=== PATIENT | female | born 1990 | race Caucasian/White ===

== ENCOUNTER 2019-04-04 17:13 | Emergency (ER) | payer MEDICAID, OTHER ==
[~2019-04-04] VITALS: Ht 160 cm; Wt 65.9 kg
[~2019-04-04 17:13] MED LIST: DIVA-54 PO; DIVA250T4 PO; ETHI1TAB16 PO; FLUT16H NASAL; GUAN1TAB22 PO
[2019-04-04] MEDS ORDERED: IBUP-2070 PO (19:51)
[2019-04-04] MEDS ORDERED: GEMF600T5 PO (19:51)
[2019-04-04] MEDS ORDERED: BACL10TA PO (19:51)
[2019-04-04] MEDS ORDERED: ARIP10TA8 PO (19:51)
[2019-04-04] MEDS ORDERED: HYDR50CA9 PO (19:51)
[2019-04-04] MEDS ORDERED: CLON0.1T2 PO (19:51)
[2019-04-04] MEDS ORDERED: OXCA300T29 PO (19:51)
[2019-04-04] MEDS ORDERED: OLAN5TAB2 PO (19:51)
[2019-04-04] MEDS ORDERED: DIVA-54 PO (19:53)
[2019-04-04 20:07] LABS: BASOPHILS % (AUTO) 0.6 % (0.0-2.0); EOSINOPHILS % (AUTO) 0.2 % (1.0-6.0); HEMATOCRIT 38.2 % (36-46); HEMOGLOBIN 13.1 g/dL (12.0-16.0); LYMPHOCYTES % (AUTO) 45.3 % (22.0-44.0); MEAN CORPUSCULAR HEMOGLOBIN 32.5 pg (26.0-34.0); MEAN CORPUSCULAR HGB CONC 34.4 G/dL (31.0-37.0); MEAN CORPUSCULAR VOLUME 94 fL (80-100); MONOCYTES # (AUTO) 0.5 K/uL (0.1-1.0); MONOCYTES % (AUTO) 8.1 % (2.0-9.0); NEUTROPHILS % (AUTO) 45.8 % (40.0-70.0); PLATELET COUNT (AUTO) 175 K/uL (150-450); RED BLOOD CELL COUNT(AUTO) 4.05 MIL/uL (4.00-5.20); RED CELL DISTRIBUTION WIDTH 13.1 % (11.5-14.5)
[2019-04-04 20:18] LABS: ANION GAP 11 mmol/L (8-16); CALCIUM, TOTAL 9.2 mg/dL (8.8-10.5); CARBON DIOXIDE 28 mmol/L (22-29); CHLORIDE 101 mmol/L (98-107); CREATININE 0.82 mg/dL (0.60-1.30); GLOMERULAR FILTR. RATE CALC > 60 mL/min (>60); GLUCOSE,RANDOM 121 mg/dL (70-110); POTASSIUM 3.8 mmol/L (3.5-5.1); SODIUM SERUM 140 mmol/L (136-145); UREA NITROGEN, BLOOD 14 mg/dL (7-18)
[2019-04-04 20:24] LABS: ALANINE AMINOTRANSFERASE 14 U/L (12-78); ALBUMIN 3.3 g/dL (3.4-5.0); ALKALINE PHOSPHATASE 38 U/L (46-116); ASPARTATE AMINOTRANSFERASE 16 U/L (15-37); BILIRUBIN,TOTAL 0.3 mg/dL (0.1-1.0); TOTAL PROTEIN, SERUM 7.3 g/dL (6.4-8.2); VALPROIC ACID 35 mcg/mL (50-100)
[2019-04-04 21:13] LABS: AMPHET/METH SCREEN,URINE NEGATIVE (NEGATIVE); BARBITURATE SCREEN, URINE NEGATIVE (NEGATIVE); BENZODIAZEPINES SCREEN,URINE NEGATIVE (NEGATIVE); CANNABINOID SCREEN,URINE NEGATIVE (NEGATIVE); COCAINE SCREEN,URINE NEGATIVE (NEGATIVE); METHADONE SCREEN, URINE NEGATIVE (NEGATIVE); OPIATE SCREEN,URINE NEGATIVE (NEGATIVE); PHENCYCLIDINE SCREEN,URINE NEGATIVE (NEGATIVE)
[2019-04-04 23:05] VITALS: BP 122/67
== END 2019-04-05 00:30 | disposition home or self-care (01) ==
LOC: EMS 17:19
DX: F31.9 Bipolar disorder, unspecified (principal); Z88.8 Allergy status to other drugs, medicaments and biological substances; Z88.1 Allergy status to other antibiotic agents; Z91.011 Allergy to milk products
CPT/HCPCS: 36415; 80053; 80164; 80307; 85025; 99285; G0480

== ENCOUNTER 2023-02-17 17:19 | Inpatient (IN) | payer MEDICAID, OTHER ==
[~2023-02-17] VITALS: Ht 160 cm; Wt 67.1 kg
[~2023-02-17 17:19] MED LIST changes: +ARIP10TA38 PO; +BACL10TA PO; +CLON0.1T2 PO; -DIVA250T4 PO; -ETHI1TAB16 PO; -FLUT16H NASAL; +GEMF-77 PO; -GUAN1TAB22 PO; +HYDR50CA7 PO; +IBUP-1492 PO; +OLAN5TAB52 PO; +OXCA300T70 PO
[2023-02-17 18:52] LABS: COVID AG,FIA SOURCE NASAL SWAB
[2023-02-17 18:54] LABS: BASOPHILS % (AUTO) 0.6 % (0.0-2.0); EOSINOPHILS % (AUTO) 0 % (1.0-6.0); LYMPHOCYTES # (AUTO) 1.3 K/uL (1.0-4.8); LYMPHOCYTES % (AUTO) 24.5 % (22.0-44.0); MEAN CORPUSCULAR HEMOGLOBIN 31.6 pg (26.0-34.0); MEAN CORPUSCULAR HGB CONC 34.3 G/dL (31.0-37.0); MEAN CORPUSCULAR VOLUME 92 fL (80-100); MONOCYTES # (AUTO) 0.5 K/uL (0.1-1.0); MONOCYTES % (AUTO) 9.7 % (2.0-9.0); NEUTROPHILS # (AUTO) 3.5 K/uL (1.8-7.7); NEUTROPHILS % (AUTO) 65.2 % (40.0-70.0); PLATELET COUNT (AUTO) 200 K/uL (150-450); RED BLOOD CELL COUNT(AUTO) 3.47 MIL/uL (4.00-5.20); RED CELL DISTRIBUTION WIDTH 14.1 % (11.5-14.5); WHITE BLOOD COUNT (AUTO) 5.4 K/uL (4.5-11.0)
[2023-02-17 18:56] LABS: AMPHET/METH SCREEN,URINE NEGATIVE (NEGATIVE); BARBITURATE SCREEN, URINE NEGATIVE (NEGATIVE); BENZODIAZEPINES SCREEN,URINE NEGATIVE (NEGATIVE); CANNABINOID SCREEN,URINE NEGATIVE (NEGATIVE); COCAINE SCREEN,URINE NEGATIVE (NEGATIVE); METHADONE SCREEN, URINE NEGATIVE (NEGATIVE); OPIATE SCREEN,URINE NEGATIVE (NEGATIVE); PHENCYCLIDINE SCREEN,URINE NEGATIVE (NEGATIVE)
[2023-02-17 18:58] LABS: ALCOHOL, URINE DRUG SCREEN NEGATIVE (NEGATIVE)
[2023-02-17] MEDS ORDERED: POLYETHYLENE GLYCOL 3350 17 GM PACKET PO ONE (19:00)
[2023-02-17] MEDS ORDERED: LORazepam 2 MG TABLET PO ONE (19:00)
[2023-02-17 19:04] LABS: CALCIUM, TOTAL 9.1 mg/dL (8.8-10.5); CARBON DIOXIDE 23 mmol/L (22-29); CHLORIDE 99 mmol/L (98-107); CREATININE 0.92 mg/dL (0.60-1.30); GLOMERULAR FILTR. RATE CALC > 60 mL/min (>60); GLUCOSE,RANDOM 235 mg/dL (70-110); POTASSIUM 4.1 mmol/L (3.5-5.1); UREA NITROGEN, BLOOD 14 mg/dL (7-18)
[2023-02-17 19:09] LABS: ALANINE AMINOTRANSFERASE 18 U/L (12-78); ALBUMIN 3.5 g/dL (3.4-5.0); ALKALINE PHOSPHATASE 56 U/L (46-116); ASPARTATE AMINOTRANSFERASE 14 U/L (15-37); BILIRUBIN,TOTAL 0.4 mg/dL (0.1-1.0); TOTAL PROTEIN, SERUM 6.8 g/dL (6.4-8.2)
[2023-02-17 19:12] LABS: SARS-COV2 (COVID) ANTIGEN,FIA Negative (Negative)
[2023-02-17 19:44] LABS: ALCOHOL, BLOOD (SERUM) < 3 mg/dL (0-10)
[2023-02-17 19:52] LABS: ANION GAP 15 mmol/L (8-16); SODIUM SERUM 137 mmol/L (136-145)
[2023-02-17] MEDS ORDERED: DIVALPROEX SODIUM 500 MG DR TABLET PO SCH (21:00)
[2023-02-17] MEDS ORDERED: ARIPiprazole 10 MG TABLET PO SCH (21:00)
[2023-02-17] MEDS ORDERED: HALOPERIDOL 5 MG TABLET PO PRN (22:15)
[2023-02-17] MEDS ORDERED: LORazepam 2 MG TABLET PO PRN (22:15)
[2023-02-17] MEDS: BACLOFEN 10 MG TABLET PO SCH (22:19)
[2023-02-17] MEDS: CloNIDine HCL 0.1 MG TABLET PO SCH (22:19)
[2023-02-17] MEDS: OXcarbazepine 300 MG TABLET PO SCH (22:19)
[2023-02-18] MEDS ORDERED: ACETAMINOPHEN 500 MG TABLET PO ONE (01:00)
[2023-02-18] MEDS: CloNIDine HCL 0.1 MG TABLET PO SCH ×3 (08:26→18:00)
[2023-02-18] MEDS: BACLOFEN 10 MG TABLET PO SCH ×3 (08:27→17:00)
[2023-02-18] MEDS: OXcarbazepine 300 MG TABLET PO SCH ×2 (08:27→17:57)
[2023-02-18] MEDS ORDERED: DIVALPROEX SODIUM 500 MG DR TABLET PO SCH (09:00)
[2023-02-18 12:26] VITALS: BP 140/89; PULSE 89; RESP 18; TEMP 98; O2SAT 99
[2023-02-18] MEDS ORDERED: INFLUENZA VIRUS VACCINE QVS 2023-24 (6MO+)/PF 60 MCG/0.5 ML SYRINGE IM. ONE (13:30)
[2023-02-18 18:00] VITALS: BP 128/80; PULSE 82; RESP 18
[2023-02-18] MEDS: DIVALPROEX SODIUM 500 MG DR TABLET PO SCH (20:16)
[2023-02-18 20:21] VITALS: BP 128/83; PULSE 78; RESP 18; TEMP 97.6; O2SAT 100
[2023-02-18] MEDS ORDERED: LOPERAMIDE HCL 2 MG CAPSULE PO PRN (20:30)
[2023-02-18] MEDS ORDERED: DOCUSATE SODIUM 100 MG CAPSULE PO PRN (20:30)
[2023-02-18] MEDS ORDERED: OMEPRAZOLE 20 MG CAPSULE PO PRN (20:30)
[2023-02-18] MEDS ORDERED: ALBUTEROL SULFATE HFA 90 MCG/PUFF 8 GM INHALER IH PRN (20:30)
[2023-02-18] MEDS ORDERED: BACITRACIN 28 GM OINTMENT TP PRN (20:30)
[2023-02-18] MEDS ORDERED: MAG HYDROX/ALUMINUM HYD/SIMETH ES 30 ML SUSPENSION UDCUP PO PRN (20:30)
[2023-02-18] MEDS ORDERED: CloNIDine HCL 0.1 MG TABLET PO PRN (20:30)
[2023-02-18] MEDS ORDERED: MAGNESIUM HYDROXIDE SUSPENSION 30 ML UDCUP PO PRN (20:30)
[2023-02-18] MEDS ORDERED: ACETAMINOPHEN 325 MG TABLET PO PRN (20:30)
[2023-02-18] MEDS ORDERED: BENZOCAINE/MENTHOL LOZENGE PO PRN (20:30)
[2023-02-18] MEDS ORDERED: PETROLATUM,WHITE 28 GM JELLY TP PRN (20:30)
[2023-02-18] MEDS ORDERED: IBUPROFEN 600 MG TABLET PO PRN (20:30)
[2023-02-18] MEDS ORDERED: ONDANSETRON HCL 4 MG TABLET PO PRN (20:30)
[2023-02-18] MEDS: ZOLPIDEM TARTRATE 10 MG TABLET PO PRN (21:59)
[2023-02-19] MEDS: ARIPiprazole 15 MG TABLET PO SCH (08:10)
[2023-02-19] MEDS: LITHIUM CARBONATE 300 MG CAPSULE PO SCH ×2 (08:10→16:21)
[2023-02-19] MEDS: OXcarbazepine 300 MG TABLET PO SCH ×2 (08:12→16:21)
[2023-02-19 08:15] VITALS: BP 117/77; PULSE 87; RESP 17; TEMP 97.3; O2SAT 96
[2023-02-19] MEDS: DIVALPROEX SODIUM 500 MG DR TABLET PO SCH ×2 (11:49→20:12)
[2023-02-19] MEDS: BACITRACIN 28 GM OINTMENT TP SCH ×2 (11:51→17:39)
[2023-02-19] MEDS: ZOLPIDEM TARTRATE 10 MG TABLET PO PRN (20:12)
[2023-02-20 00:23] VITALS: RESP 18; TEMP 97.9
[2023-02-20 06:07] LABS: HEPATITIS C AB (EIA) Non Reactive (Non Reactive)
[2023-02-20 08:23] VITALS: BP 123/81; PULSE 79; RESP 16; TEMP 97.8; O2SAT 98
[2023-02-20] MEDS: ARIPiprazole 15 MG TABLET PO SCH (08:32)
[2023-02-20] MEDS: DIVALPROEX SODIUM 500 MG DR TABLET PO SCH ×2 (08:32→20:00)
[2023-02-20] MEDS: OXcarbazepine 300 MG TABLET PO SCH ×2 (08:32→16:19)
[2023-02-20] MEDS: LITHIUM CARBONATE 300 MG CAPSULE PO SCH ×2 (08:32→16:19)
[2023-02-20] MEDS: BACITRACIN 28 GM OINTMENT TP SCH ×2 (08:33→16:19)
[2023-02-20] MEDS: ZOLPIDEM TARTRATE 10 MG TABLET PO PRN (20:00)
[2023-02-20 20:30] VITALS: BP 127/89; PULSE 77; RESP 18; TEMP 97.5; O2SAT 99
[2023-02-20] MEDS ORDERED: DIVA-112 PO ×2 (22:00)
[2023-02-20] MEDS ORDERED: ARIP15TA27 PO (22:00)
[2023-02-20] MEDS ORDERED: OXCA300T28 PO (22:01)
[2023-02-20] MEDS ORDERED: LITH300C3 PO (22:01)
[2023-02-21 08:05] VITALS: BP 128/86; PULSE 100; RESP 18; TEMP 98; O2SAT 98
[2023-02-21] MEDS: LITHIUM CARBONATE 300 MG CAPSULE PO SCH (08:24)
[2023-02-21] MEDS: OXcarbazepine 300 MG TABLET PO SCH (08:24)
[2023-02-21] MEDS: DIVALPROEX SODIUM 500 MG DR TABLET PO SCH (08:24)
[2023-02-21] MEDS: ARIPiprazole 15 MG TABLET PO SCH (08:24)
[2023-02-21] MEDS: BACITRACIN 28 GM OINTMENT TP SCH (08:25)
== END 2023-02-21 13:28 | disposition home or self-care (01) | DRG 750 ==
LOC: EMS 17:20 → B3A 02-18 09:06
PROVIDERS: ADMIT Psychiatry & Neurology Psychiatry; ATTEND Psychiatry & Neurology Psychiatry
DX: F25.9 Schizoaffective disorder, unspecified (principal); F70 Mild intellectual disabilities; E73.9 Lactose intolerance, unspecified; Z20.822 Contact with and (suspected) exposure to COVID-19; F31.9 Bipolar disorder, unspecified; J30.9 Allergic rhinitis, unspecified; K59.00 Constipation, unspecified; F90.9 Attention-deficit hyperactivity disorder, unspecified type; Z88.2 Allergy status to sulfonamides; Z79.899 Other long term (current) drug therapy
CPT/HCPCS: 80053; 80307; 85025; 86803; 87340; 90686; 99285; G0480

== ENCOUNTER 2023-07-02 10:39 | Inpatient (IN) | payer MEDICAID, OTHER ==
[~2023-07-02] VITALS: Ht 160 cm; Wt 66.2 kg
[~2023-07-02 10:39] MED LIST changes: -ARIP10TA38 PO; +ARIP15TA27 PO; -BACL10TA PO; -CLON0.1T2 PO; +DIVA-112 PO; -DIVA-54 PO; -GEMF-77 PO; -HYDR50CA7 PO; -IBUP-1492 PO; +LITH300C3 PO; -OLAN5TAB52 PO; +OXCA300T28 PO; -OXCA300T70 PO
[2023-07-02 12:05] LABS: COVID AG,FIA SOURCE NPH
[2023-07-02 12:05] LABS: BASOPHILS % (AUTO) 0.7 % (0.0-2.0); EOSINOPHILS % (AUTO) 0 % (1.0-6.0); HEMATOCRIT 34.7 % (36-46); LYMPHOCYTES # (AUTO) 1.6 K/uL (1.0-4.8); LYMPHOCYTES % (AUTO) 30.4 % (22.0-44.0); MEAN CORPUSCULAR HEMOGLOBIN 31.5 pg (26.0-34.0); MEAN CORPUSCULAR HGB CONC 34.6 G/dL (31.0-37.0); MEAN CORPUSCULAR VOLUME 91 fL (80-100); MONOCYTES # (AUTO) 0.5 K/uL (0.1-1.0); MONOCYTES % (AUTO) 9.5 % (2.0-9.0); NEUTROPHILS % (AUTO) 59.4 % (40.0-70.0); PLATELET COUNT (AUTO) 184 K/uL (150-450); RED BLOOD CELL COUNT(AUTO) 3.81 MIL/uL (4.00-5.20); WHITE BLOOD COUNT (AUTO) 5.1 K/uL (4.5-11.0)
[2023-07-02 12:14] LABS: ANION GAP 10 mmol/L (8-16); CALCIUM, TOTAL 9.5 mg/dL (8.8-10.5); CARBON DIOXIDE 25 mmol/L (22-29); CHLORIDE 101 mmol/L (98-107); GLOMERULAR FILTR. RATE CALC > 60 mL/min (>60); GLUCOSE,RANDOM 192 mg/dL (70-110); POTASSIUM 3.7 mmol/L (3.5-5.1); SODIUM SERUM 136 mmol/L (136-145); UREA NITROGEN, BLOOD 13 mg/dL (7-18)
[2023-07-02 12:21] LABS: ALANINE AMINOTRANSFERASE 18 U/L (12-78); ALBUMIN 3.8 g/dL (3.4-5.0); ALKALINE PHOSPHATASE 53 U/L (46-116); ASPARTATE AMINOTRANSFERASE 18 U/L (15-37); BILIRUBIN,TOTAL 0.5 mg/dL (0.1-1.0); TOTAL PROTEIN, SERUM 7.4 g/dL (6.4-8.2)
[2023-07-02 12:22] LABS: LITHIUM 0.39 mmol/L (0.60-1.20)
[2023-07-02 12:23] LABS: ALCOHOL, BLOOD (SERUM) < 3 mg/dL (0-10)
[2023-07-02 12:27] LABS: SARS-COV2 (COVID) ANTIGEN,FIA Negative (Negative)
[2023-07-02 12:37] LABS: HCG,QUANTITATIVE < 1 mIU/mL (0-6); VALPROIC ACID 39 mcg/mL (50-100)
[2023-07-02] MEDS: AMOX TR/POT CLAV 875 MG/125 MG TABLET PO ONE (14:45)
[2023-07-02] MEDS: PERTUSS(ACELL),DIPH,TET/PF 0.5 ML SYRINGE [ADULT] IM. ONE (14:47)
[2023-07-02] MEDS: ACETAMINOPHEN 500 MG TABLET PO ONE (18:23)
[2023-07-02] MEDS ORDERED: LORazepam 2 MG TABLET PO PRN (21:00)
[2023-07-02] MEDS ORDERED: HALOPERIDOL 5 MG TABLET PO PRN (21:00)
[2023-07-02] MEDS: ZOLPIDEM TARTRATE 10 MG TABLET PO PRN (21:00)
[2023-07-02] MEDS: MELATONIN 3 MG TABLET PO ONE (21:21)
[2023-07-03 00:48] VITALS: BP 138/81; PULSE 82; RESP 18; TEMP 97.5
[2023-07-03] MEDS ORDERED: MAG HYDROX/ALUMINUM HYD/SIMETH ES 30 ML SUSPENSION UDCUP PO PRN (06:45)
[2023-07-03] MEDS ORDERED: CloNIDine HCL 0.1 MG TABLET PO PRN (06:45)
[2023-07-03] MEDS ORDERED: ALBUTEROL SULFATE HFA 90 MCG/PUFF 8 GM INHALER IH PRN (06:45)
[2023-07-03] MEDS ORDERED: LOPERAMIDE HCL 2 MG CAPSULE PO PRN (06:45)
[2023-07-03] MEDS ORDERED: DOCUSATE SODIUM 100 MG CAPSULE PO PRN (06:45)
[2023-07-03] MEDS ORDERED: ACETAMINOPHEN 325 MG TABLET PO PRN (06:45)
[2023-07-03] MEDS ORDERED: NICOTINE 14 MG/24 HOUR PATCH TD PRN (06:45)
[2023-07-03] MEDS ORDERED: GuaiFENesin/D-METHORPHAN [SUGAR-FREE] 200-20MG/10 ML SYRUP UDCUP PO PRN (06:45)
[2023-07-03] MEDS ORDERED: ONDANSETRON HCL 4 MG TABLET PO PRN (06:45)
[2023-07-03] MEDS ORDERED: PETROLATUM,WHITE 28 GM JELLY TP PRN (06:45)
[2023-07-03] MEDS ORDERED: MAGNESIUM HYDROXIDE SUSPENSION 30 ML UDCUP PO PRN (06:45)
[2023-07-03 09:31] VITALS: BP 126/76; PULSE 90; RESP 18; TEMP 98.2
[2023-07-03] MEDS: DIVALPROEX SODIUM 500 MG DR TABLET PO SCH ×2 (16:41→20:55)
[2023-07-03] MEDS: ARIPiprazole 15 MG TABLET PO SCH (16:41)
[2023-07-03 21:05] VITALS: BP 118/65; PULSE 68; RESP 19; TEMP 97
[2023-07-04 09:06] LABS: THYROID STIMULATING HORMONE 3.01 uIU/mL (0.36-3.74)
[2023-07-04] MEDS: IBUPROFEN 400 MG TABLET PO PRN (09:36)
[2023-07-04 09:37] VITALS: BP 122/78; PULSE 82; RESP 18; TEMP 97.3
[2023-07-04 10:36] VITALS: BP 124/76; PULSE 78; RESP 18
[2023-07-04 21:37] VITALS: BP 158/90; PULSE 92; RESP 18; TEMP 97.5
[2023-07-05 09:34] VITALS: BP 119/80; PULSE 84; RESP 17; TEMP 97.3
[2023-07-05 21:23] VITALS: BP 124/76; PULSE 84; RESP 18; TEMP 98.1
[2023-07-06 07:41] LABS: CHOL/HDL RATIO 4.4 (3.9-5.7)
[2023-07-06 08:32] VITALS: BP 127/76; PULSE 74; RESP 18; TEMP 97.6
[2023-07-07] MEDS ORDERED: DIVA-112 PO ×2 (17:36)
[2023-07-07] MEDS ORDERED: ARIP15TA2 PO (17:36)
== END 2023-07-06 17:04 | disposition home or self-care (01) | DRG 750 ==
LOC: EMS 10:46 → 3EI 21:39
PROVIDERS: ADMIT Psychiatry & Neurology Psychiatry; ATTEND Psychiatry & Neurology Psychiatry
PROC: GZHZZZZ Group Psychotherapy (ICD-10-PCS; principal; 2023-07-03)
PROC: GZ51ZZZ Individual Psychotherapy, Behavioral (ICD-10-PCS; 2023-07-03)
DX: F25.1 Schizoaffective disorder, depressive type (principal); F79 Unspecified intellectual disabilities; F31.9 Bipolar disorder, unspecified; Z20.822 Contact with and (suspected) exposure to COVID-19; G47.00 Insomnia, unspecified; R73.9 Hyperglycemia, unspecified; Q86.0 Fetal alcohol syndrome (dysmorphic); Z79.899 Other long term (current) drug therapy; Z88.2 Allergy status to sulfonamides; Z88.3 Allergy status to other anti-infective agents; Z91.83 Wandering in diseases classified elsewhere
CPT/HCPCS: 80053; 80061; 80164; 80178; 83036; 84443; 84702; 85025; 90715; 99285; G0480

== ENCOUNTER 2023-07-10 09:44 | Inpatient (IN) | payer MEDICAID, OTHER ==
[~2023-07-10] VITALS: Ht 154.9 cm; Wt 66.2 kg
[~2023-07-10 09:44] MED LIST changes: +ARIP15TA2 PO; -LITH300C3 PO; -OXCA300T28 PO
[2023-07-10] MEDS ORDERED: ATOR10TA PO (10:14)
[2023-07-10] MEDS ORDERED: FLUO20CA36 PO (10:14)
[2023-07-10] MEDS ORDERED: CHLO100T42 PO (10:14)
[2023-07-10] MEDS ORDERED: ALLO-97 PO (10:14)
[2023-07-10] MEDS ORDERED: HYDR-4527 PO (10:14)
[2023-07-10] MEDS ORDERED: LEVO50 PO (10:14)
[2023-07-10] MEDS ORDERED: BUSP10TA23 PO (10:14)
[2023-07-10] MEDS ORDERED: ZOLPIDEM TARTRATE 10 MG TABLET PO PRN (12:30)
[2023-07-10 12:52] LABS: ALCOHOL, URINE DRUG SCREEN NEGATIVE (NEGATIVE); AMPHET/METH SCREEN,URINE NEGATIVE (NEGATIVE); BARBITURATE SCREEN, URINE NEGATIVE (NEGATIVE); BENZODIAZEPINES SCREEN,URINE NEGATIVE (NEGATIVE); CANNABINOID SCREEN,URINE NEGATIVE (NEGATIVE); COCAINE SCREEN,URINE NEGATIVE (NEGATIVE); METHADONE SCREEN, URINE NEGATIVE (NEGATIVE); OPIATE SCREEN,URINE NEGATIVE (NEGATIVE); PHENCYCLIDINE SCREEN,URINE NEGATIVE (NEGATIVE)
[2023-07-10 12:53] LABS: COVID AG,FIA SOURCE NASAL SWAB
[2023-07-10 12:58] LABS: BASOPHILS % (AUTO) 0.6 % (0.0-2.0); EOSINOPHILS % (AUTO) 0 % (1.0-6.0); HEMATOCRIT 34.8 % (36-46); HEMOGLOBIN 11.9 g/dL (12.0-16.0); LYMPHOCYTES # (AUTO) 1.2 K/uL (1.0-4.8); MEAN CORPUSCULAR HEMOGLOBIN 30.8 pg (26.0-34.0); MEAN CORPUSCULAR HGB CONC 34.1 G/dL (31.0-37.0); MEAN CORPUSCULAR VOLUME 90 fL (80-100); MONOCYTES # (AUTO) 0.3 K/uL (0.1-1.0); MONOCYTES % (AUTO) 7.2 % (2.0-9.0); NEUTROPHILS # (AUTO) 3.1 K/uL (1.8-7.7); NEUTROPHILS % (AUTO) 66.2 % (40.0-70.0); PLATELET COUNT (AUTO) 182 K/uL (150-450); RED BLOOD CELL COUNT(AUTO) 3.86 MIL/uL (4.00-5.20); RED CELL DISTRIBUTION WIDTH 15.2 % (11.5-14.5); WHITE BLOOD COUNT (AUTO) 4.6 K/uL (4.5-11.0)
[2023-07-10 13:09] LABS: ANION GAP 9 mmol/L (8-16); CALCIUM, TOTAL 9.6 mg/dL (8.8-10.5); CARBON DIOXIDE 26 mmol/L (22-29); CHLORIDE 102 mmol/L (98-107); CREATININE 0.86 mg/dL (0.60-1.30); GLOMERULAR FILTR. RATE CALC > 60 mL/min (>60); GLUCOSE,RANDOM 234 mg/dL (70-110); POTASSIUM 4.3 mmol/L (3.5-5.1); SODIUM SERUM 137 mmol/L (136-145); UREA NITROGEN, BLOOD 13 mg/dL (7-18)
[2023-07-10 13:13] LABS: ALCOHOL, BLOOD (SERUM) < 3 mg/dL (0-10)
[2023-07-10 13:15] LABS: ALANINE AMINOTRANSFERASE 22 U/L (12-78); ALBUMIN 3.4 g/dL (3.4-5.0); ALKALINE PHOSPHATASE 51 U/L (46-116); ASPARTATE AMINOTRANSFERASE 10 U/L (15-37); BILIRUBIN,TOTAL 0.5 mg/dL (0.1-1.0)
[2023-07-10 13:34] LABS: SARS-COV2 (COVID) ANTIGEN,FIA Negative (Negative)
[2023-07-10 17:45] VITALS: BP 120/83; PULSE 91; RESP 16; TEMP 98.8
[2023-07-10] MEDS: -PHARMACY VACCINE NOTE- MISC ONE (18:30)
[2023-07-10 20:41] VITALS: BP 129/83; PULSE 70; RESP 18; TEMP 97.5
[2023-07-10 23:41] VITALS: BP 129/83; PULSE 70; RESP 18; TEMP 97.5; O2SAT 99
[2023-07-11] MEDS: HALOPERIDOL 5 MG TABLET PO PRN (08:17)
[2023-07-11 08:21] VITALS: RESP 16
[2023-07-11] MEDS ORDERED: LOPERAMIDE HCL 2 MG CAPSULE PO PRN (08:45)
[2023-07-11] MEDS ORDERED: ONDANSETRON HCL 4 MG TABLET PO PRN (08:45)
[2023-07-11] MEDS ORDERED: DOCUSATE SODIUM 100 MG CAPSULE PO PRN (08:45)
[2023-07-11] MEDS ORDERED: MAGNESIUM HYDROXIDE SUSPENSION 30 ML UDCUP PO PRN (08:45)
[2023-07-11] MEDS ORDERED: GuaiFENesin/D-METHORPHAN [SUGAR-FREE] 200-20MG/10 ML SYRUP UDCUP PO PRN (08:45)
[2023-07-11] MEDS ORDERED: MAG HYDROX/ALUMINUM HYD/SIMETH ES 30 ML SUSPENSION UDCUP PO PRN (08:45)
[2023-07-11] MEDS ORDERED: CloNIDine HCL 0.1 MG TABLET PO PRN (08:45)
[2023-07-11] MEDS ORDERED: PETROLATUM,WHITE 28 GM JELLY TP PRN (08:45)
[2023-07-11] MEDS ORDERED: NICOTINE 14 MG/24 HOUR PATCH TD PRN (08:45)
[2023-07-11] MEDS ORDERED: IBUPROFEN 400 MG TABLET PO PRN (08:45)
[2023-07-11] MEDS ORDERED: ALBUTEROL SULFATE HFA 90 MCG/PUFF 8 GM INHALER IH PRN (08:45)
[2023-07-11] MEDS: DIVALPROEX SODIUM 500 MG DR TABLET PO SCH (14:17)
[2023-07-11] MEDS: MetFORMIN HCL 500 MG TABLET PO SCH (16:53)
[2023-07-11] MEDS: FluPHENAZine DECANOATE 25 MG/ML IM SCH (16:54)
[2023-07-11 20:05] VITALS: BP 104/60; PULSE 60; RESP 17; TEMP 98
[2023-07-12] MEDS: LEVOTHYROXINE SODIUM 50 MCG TABLET PO SCH (06:39)
[2023-07-12] MEDS: ATORVASTATIN CALCIUM 10 MG TABLET PO SCH (08:10)
[2023-07-12] MEDS: ALLOPURINOL 100 MG TABLET PO SCH (08:10)
[2023-07-12] MEDS: LORazepam 2 MG TABLET PO PRN (08:10)
[2023-07-12 09:02] LABS: THYROID STIMULATING HORMONE 2.21 uIU/mL (0.36-3.74)
[2023-07-12 09:31] LABS: CHOL/HDL RATIO 4.5 (3.9-5.7)
[2023-07-12 11:29] VITALS: BP 117/83; PULSE 74; RESP 17; TEMP 97.6; O2SAT 100
[2023-07-12 21:48] VITALS: BP 107/60; PULSE 62; RESP 18; TEMP 97.1; O2SAT 100
[2023-07-13 08:23] VITALS: BP 117/78; PULSE 86; RESP 16; TEMP 97.6; O2SAT 99
[2023-07-13 09:18] LABS: APPEARANCE,URINE CLEAR (CLEAR); BILIRUBIN,URINE NEGATIVE (NEGATIVE); COLOR,URINE LIGHT YELLOW (YELLOW); GLUCOSE, URINE (UA) NEGATIVE (NEGATIVE); KETONES,URINE NEGATIVE (NEGATIVE); LEUKOCYTE ESTERASE ,URINE NEGATIVE (NEGATIVE); NITRATE,URINE NEGATIVE (NEGATIVE); OCCULT BLOOD,URINE NEGATIVE (NEGATIVE); PH,URINE 6.5 (5.0-8.0); PROTEIN,URINE NEGATIVE (NEGATIVE); SPECIFIC GRAVITIY, URINE 1.019 (1.003-1.030); UROBILINOGEN,URINE <=1.0 mg/dL (<=1.0)
[2023-07-13] MEDS: ACETAMINOPHEN 325 MG TABLET PO PRN (16:38)
[2023-07-13 20:43] VITALS: BP 118/78; PULSE 69; RESP 16; TEMP 97.3; O2SAT 100
[2023-07-14 08:26] VITALS: BP 120/76; PULSE 86; RESP 16; TEMP 98; O2SAT 97
[2023-07-15 02:07] VITALS: RESP 18; TEMP 98.2
[2023-07-15 08:18] VITALS: BP 109/76; PULSE 80; RESP 16; TEMP 97.7; O2SAT 100
[2023-07-15 20:00] VITALS: BP 108/69; PULSE 86; RESP 18; TEMP 97.9; O2SAT 98
[2023-07-16 08:47] VITALS: BP 117/71; PULSE 79; RESP 17; TEMP 97.2; O2SAT 98
[2023-07-16 20:34] VITALS: BP 122/76; PULSE 66; RESP 16; TEMP 98; O2SAT 97
[2023-07-17 08:35] VITALS: BP 116/78; PULSE 80; RESP 16; TEMP 97.1; O2SAT 98
[2023-07-18 06:11] VITALS: RESP 18; TEMP 98.1
[2023-07-18 08:28] VITALS: BP 117/77; PULSE 63; RESP 18; TEMP 98; O2SAT 98
[2023-07-18 21:41] VITALS: BP 101/62; PULSE 65; RESP 18; TEMP 97.9; O2SAT 100
[2023-07-19 08:31] VITALS: BP 135/84; PULSE 90; RESP 18; TEMP 97.6; O2SAT 98
[2023-07-19] MEDS: FLUoxetine HCL 20 MG CAPSULE PO SCH (11:39)
[2023-07-19 21:48] VITALS: BP 125/73; PULSE 102; RESP 17; TEMP 98.6; O2SAT 96
[2023-07-20 08:31] VITALS: BP 128/74; PULSE 79; RESP 16; TEMP 98; O2SAT 96
[2023-07-20] MEDS ORDERED: DIVA-112 PO (10:48)
[2023-07-20] MEDS ORDERED: FLUO20CA36 PO (10:48)
[2023-07-20] MEDS ORDERED: FLUP25VI5 IM (10:48)
[2023-07-20] MEDS ORDERED: METF-1211 PO (14:31)
[2023-07-25] MEDS ORDERED: FluPHENAZine DECANOATE 25 MG/ML IM SCH (09:00)
== END 2023-07-20 17:27 | disposition home or self-care (01) | DRG 750 ==
LOC: EMS 09:58 → B3A 14:18
PROVIDERS: ADMIT Psychiatry & Neurology Psychiatry; ATTEND Psychiatry & Neurology Psychiatry
PROC: GZHZZZZ Group Psychotherapy (ICD-10-PCS; principal; 2023-07-11)
PROC: GZ51ZZZ Individual Psychotherapy, Behavioral (ICD-10-PCS; 2023-07-11)
DX: F25.1 Schizoaffective disorder, depressive type (principal); R45.851 Suicidal ideations; F79 Unspecified intellectual disabilities; E03.9 Hypothyroidism, unspecified; E11.65 Type 2 diabetes mellitus with hyperglycemia; D64.9 Anemia, unspecified; E78.5 Hyperlipidemia, unspecified; Z20.822 Contact with and (suspected) exposure to COVID-19; Q86.0 Fetal alcohol syndrome (dysmorphic); Z59.00 Homelessness unspecified; Z79.899 Other long term (current) drug therapy; Z88.2 Allergy status to sulfonamides; Z88.8 Allergy status to other drugs, medicaments and biological substances
CPT/HCPCS: 80053; 80061; 80164; 80307; 81003; 83036; 84443; 84703; 85025; 99285; G0480; J2680

== ENCOUNTER → 2024-02-25 | Emergency (ER) | payer MEDICAID, OTHER ==
[~2024-02-25] VITALS: Ht 160 cm; Wt 66.4 kg
[~2024-02-25] MED LIST changes: +ALLO-97 PO; -ARIP15TA2 PO; -ARIP15TA27 PO; +ATOR10TA PO; +FLUO-418 PO; +FLUP25VI5 IM; +LEVO50 PO; +METF-1211 PO
[2024-02-25 23:52] VITALS: TEMP 98.8
[2024-02-26 02:17] LABS: COVID AG,FIA SOURCE NASAL SWAB
[2024-02-26 02:29] LABS: SARS-COV2 (COVID) ANTIGEN,FIA Negative (Negative)
[2024-02-26 03:19] LABS: PH,URINE DRUG SCREEN 6.5 (5.0-8.0)
[2024-02-26 03:26] LABS: ALCOHOL, URINE DRUG SCREEN NEGATIVE (NEGATIVE); AMPHET/METH SCREEN,URINE NEGATIVE (NEGATIVE); BARBITURATE SCREEN, URINE NEGATIVE (NEGATIVE); BENZODIAZEPINES SCREEN,URINE NEGATIVE (NEGATIVE); CANNABINOID SCREEN,URINE NEGATIVE (NEGATIVE); COCAINE SCREEN,URINE NEGATIVE (NEGATIVE); METHADONE SCREEN, URINE NEGATIVE (NEGATIVE); OPIATE SCREEN,URINE NEGATIVE (NEGATIVE); PHENCYCLIDINE SCREEN,URINE NEGATIVE (NEGATIVE)
[2024-02-26 07:40] VITALS: BP 119/69; PULSE 75; RESP 18; O2SAT 99
== END | disposition still patient (30) ==
LOC: EMS 23:49
DX: F31.9 Bipolar disorder, unspecified (principal); Z88.2 Allergy status to sulfonamides; Z88.1 Allergy status to other antibiotic agents; Z20.822 Contact with and (suspected) exposure to COVID-19
CPT/HCPCS: 80307; 99285

== ENCOUNTER 2025-01-19 12:10 | Inpatient (IN) | payer MEDICAID, OTHER ==
[~2025-01-19] VITALS: Ht 160 cm; Wt 63.1 kg
[2025-01-19 12:38] LABS: PLATELET COUNT (AUTO) 153 K/uL (150-450); RED BLOOD CELL COUNT(AUTO) 3.35 MIL/uL (4.00-5.20); RED CELL DISTRIBUTION WIDTH 15.1 % (11.5-14.5); WHITE BLOOD COUNT (AUTO) 3.8 K/uL (4.5-11.0)
[2025-01-19 12:52] LABS: CALCIUM, TOTAL 9.2 mg/dL (8.8-10.5); CREATININE 0.98 mg/dL (0.60-1.30); GLOMERULAR FILTR. RATE CALC > 60 mL/min (>60); GLUCOSE,RANDOM 226 mg/dL (70-110); SODIUM SERUM 137 mmol/L (136-145); UREA NITROGEN, BLOOD 18 mg/dL (7-18)
[2025-01-19 14:16] LABS: VALPROIC ACID 94.0 mcg/mL (50-100)
[2025-01-19 15:07] LABS: COVID AG,FIA SOURCE NASAL SWAB
[2025-01-19 15:33] LABS: SARS-COV2 (COVID) ANTIGEN,FIA Negative (Negative)
[2025-01-19] MEDS: LEVOTHYROXINE SODIUM 100 MCG TABLET PO ONE (16:03)
[2025-01-19 16:27] VITALS: O2SAT 100
[2025-01-19 19:49] VITALS: BP 134/81; PULSE 81; RESP 18; TEMP 96.9; O2SAT 99
[2025-01-19 20:38] VITALS: BP 137/73; PULSE 84; RESP 18; TEMP 97.8; O2SAT 97
[2025-01-19 22:26] LABS: GLUCOMETER DEV NAME(LOC) BV2S.; GLUCOSE,POINT OF CARE 210 MG/DL (70-110)
[2025-01-20] MEDS ORDERED: PNEUMOCOCCAL VACCINE POLYVALENT 0.5 ML SYRINGE [PPSV23] IM. ONE (00:15)
[2025-01-20] MEDS ORDERED: ALBUTEROL SULFATE HFA 90 MCG/PUFF 8 GM INHALER IH PRN (06:00)
[2025-01-20] MEDS ORDERED: PETROLATUM,WHITE 28 GM JELLY TP PRN (06:00)
[2025-01-20] MEDS ORDERED: BACITRACIN 28 GM OINTMENT TP PRN (06:00)
[2025-01-20] MEDS ORDERED: MAG HYDROX/ALUMINUM HYD/SIMETH ES 30 ML SUSPENSION UDCUP PO PRN (06:00)
[2025-01-20] MEDS ORDERED: BENZOCAINE/MENTHOL [CEPACOL] LOZENGE PO PRN (06:00)
[2025-01-20] MEDS ORDERED: ONDANSETRON 4 MG TABLET PO PRN (06:00)
[2025-01-20] MEDS ORDERED: DOCUSATE SODIUM 100 MG CAPSULE PO PRN (06:00)
[2025-01-20] MEDS ORDERED: OMEPRAZOLE 20 MG CAPSULE PO PRN (06:00)
[2025-01-20] MEDS ORDERED: GLUCAGON,HUMAN RECOMBINANT 1 MG VIAL IM PRN (06:00)
[2025-01-20] MEDS ORDERED: MAGNESIUM HYDROXIDE SUSPENSION 30 ML UDCUP PO PRN (06:00)
[2025-01-20] MEDS: LEVOTHYROXINE SODIUM 100 MCG TABLET PO SCH (06:43)
[2025-01-20] MEDS: INSULIN LISPRO 100 UNITS/ML SQ PRN (06:47)
[2025-01-20 07:00] LABS: GLUCOMETER DEV NAME(LOC) BV2S.; GLUCOSE,POINT OF CARE 197 MG/DL (70-110)
[2025-01-20 08:25] VITALS: RESP 16
[2025-01-20] MEDS: ATORVASTATIN CALCIUM 10 MG TABLET PO SCH (09:03)
[2025-01-20] MEDS: LOPERAMIDE HCL 2 MG CAPSULE PO PRN (09:07)
[2025-01-20 12:11] LABS: GLUCOMETER DEV NAME(LOC) BV2S.; GLUCOSE,POINT OF CARE 209 MG/DL (70-110)
[2025-01-20 16:11] LABS: GLUCOMETER DEV NAME(LOC) BV2S.; GLUCOSE,POINT OF CARE 234 MG/DL (70-110)
[2025-01-20] MEDS: DIVALPROEX SODIUM 500 MG DR TABLET PO SCH (17:35)
[2025-01-20 20:19] VITALS: BP 120/74; PULSE 81; RESP 17; TEMP 97.1; O2SAT 100
[2025-01-20] MEDS: IBUPROFEN 600 MG TABLET PO PRN (20:20)
[2025-01-20 21:21] LABS: GLUCOMETER DEV NAME(LOC) BV2S.; GLUCOSE,POINT OF CARE 197 MG/DL (70-110)
[2025-01-20] MEDS: BENZTROPINE MESYLATE 2 MG TABLET PO SCH (21:47)
[2025-01-20] MEDS: ZOLPIDEM TARTRATE 10 MG TABLET PO PRN (22:30)
[2025-01-21 07:11] LABS: GLUCOMETER DEV NAME(LOC) BV2S.; GLUCOSE,POINT OF CARE 214 MG/DL (70-110)
[2025-01-21 08:32] VITALS: BP 132/76; PULSE 69; RESP 17; TEMP 97.7; O2SAT 100
[2025-01-21 11:26] LABS: GLUCOMETER DEV NAME(LOC) BV2S.; GLUCOSE,POINT OF CARE 263 MG/DL (70-110)
[2025-01-21 17:51] LABS: GLUCOMETER DEV NAME(LOC) BV2S.; GLUCOSE,POINT OF CARE 223 MG/DL (70-110)
[2025-01-21 19:01] VITALS: RESP 18; O2SAT 99
[2025-01-21 20:15] VITALS: BP 138/83; PULSE 67; RESP 17; TEMP 96.4; O2SAT 100
[2025-01-21 21:45] LABS: GLUCOMETER DEV NAME(LOC) BV3S.2; GLUCOSE,POINT OF CARE 199 MG/DL (70-110)
[2025-01-21 22:54] VITALS: BP 129/75; PULSE 69; RESP 18; TEMP 97.2; O2SAT 99
[2025-01-21] MEDS: ACETAMINOPHEN 325 MG TABLET PO PRN (22:54)
[2025-01-21 23:54] VITALS: RESP 17
[2025-01-22 06:41] LABS: GLUCOMETER DEV NAME(LOC) BV3S.2; GLUCOSE,POINT OF CARE 221 MG/DL (70-110)
[2025-01-22 08:20] VITALS: BP 142/86; PULSE 76; RESP 18; TEMP 97.4; O2SAT 100
[2025-01-22 11:16] LABS: GLUCOMETER DEV NAME(LOC) BV3S.2; GLUCOSE,POINT OF CARE 171 MG/DL (70-110)
[2025-01-22 17:10] LABS: GLUCOMETER DEV NAME(LOC) BV3S.2; GLUCOSE,POINT OF CARE 205 MG/DL (70-110)
[2025-01-22 20:15] LABS: GLUCOMETER DEV NAME(LOC) BV3S.2; GLUCOSE,POINT OF CARE 184 MG/DL (70-110)
[2025-01-22 20:33] VITALS: BP_SYST 125; BP_SYST 139; BP_DIAS 75; BP_DIAS 78; PULSE 69; RESP 17; TEMP 97.1; O2SAT 100; O2SAT 99
[2025-01-22 20:37] VITALS: RESP 17
[2025-01-22 21:37] VITALS: RESP 16
[2025-01-23 11:46] LABS: GLUCOMETER DEV NAME(LOC) BV3S.2; GLUCOSE,POINT OF CARE 203 MG/DL (70-110)
[2025-01-23 17:48] VITALS: RESP 18; O2SAT 100
[2025-01-23 20:36] LABS: GLUCOMETER DEV NAME(LOC) BV3S.2; GLUCOSE,POINT OF CARE 264 MG/DL (70-110)
[2025-01-23 20:36] LABS: GLUCOMETER DEV NAME(LOC) BV3S.2; GLUCOSE,POINT OF CARE 239 MG/DL (70-110)
[2025-01-23 20:46] VITALS: BP 130/70; PULSE 64; RESP 18; TEMP 97.7; O2SAT 99
[2025-01-24] VITALS (7 sets, daily range): BP systolic 91–139; BP diastolic 60–91; PULSE 60–78; RESP 16–18; TEMP 97.3–97.9; O2SAT 100
[2025-01-24] MEDS ORDERED: BENZ2TAB84 PO (10:14)
[2025-01-24 11:15] LABS: GLUCOMETER DEV NAME(LOC) BV3S.2; GLUCOSE,POINT OF CARE 326 MG/DL (70-110)
[2025-01-25] MEDS ORDERED: BUSP10TA23 PO (13:22)
[2025-01-25] MEDS ORDERED: LITH300C3 PO (13:22)
[2025-01-25] MEDS ORDERED: GLIP5TAB16 PO (13:22)
[2025-01-25] MEDS ORDERED: OXCA300T70 PO (13:22)
[2025-01-25] MEDS ORDERED: LORA10TA7 PO (13:22)
[2025-01-25] MEDS ORDERED: CHLO100T42 PO (13:22)
[2025-01-25] MEDS ORDERED: ARIP15TA27 PO (13:22)
[2025-01-25] MEDS ORDERED: GEMF-77 PO (13:22)
[2025-01-25] MEDS ORDERED: QUET200T PO (13:22)
[2025-01-25] MEDS ORDERED: FLUO-418 PO (13:22)
[2025-01-25] MEDS ORDERED: MELA3TAB89 PO (13:22)
== END 2025-01-24 12:00 | disposition home or self-care (01) | DRG 761 ==
LOC: EMS 12:11 → B3A 17:32
PROVIDERS: ADMIT Psychiatry & Neurology Psychiatry; ATTEND Psychiatry & Neurology Psychiatry
DX: F25.9 Schizoaffective disorder, unspecified (principal); E03.9 Hypothyroidism, unspecified; E11.9 Type 2 diabetes mellitus without complications; E78.5 Hyperlipidemia, unspecified; F41.9 Anxiety disorder, unspecified; G47.00 Insomnia, unspecified; K59.00 Constipation, unspecified; Z20.822 Contact with and (suspected) exposure to COVID-19; E73.9 Lactose intolerance, unspecified; J30.9 Allergic rhinitis, unspecified; Z88.2 Allergy status to sulfonamides; Z88.8 Allergy status to other drugs, medicaments and biological substances
CPT/HCPCS: 80048; 80164; 82962; 84443; 84702; 85025; G0480; J2680

== ENCOUNTER 2025-01-22 23:44 | Emergency (ER) | payer MEDICAID, OTHER ==
[~2025-01-22] VITALS: Ht 160 cm; Wt 63.2 kg
[2025-01-23 07:36] VITALS: BP 112/74; PULSE 54; RESP 15; TEMP 98.4; O2SAT 97
[2025-01-24] MEDS ORDERED: BENZ2TAB84 PO (10:14)
== END 2025-01-23 09:11 ==
LOC: EMS 23:45
DX: M25.552 Pain in left hip (principal); F31.9 Bipolar disorder, unspecified; Z88.1 Allergy status to other antibiotic agents; Z88.2 Allergy status to sulfonamides; Z79.899 Other long term (current) drug therapy
CPT/HCPCS: 73503; 99283

== ENCOUNTER 2025-01-24 05:11 | Emergency (ER) | payer OTHER ==
[~2025-01-24] VITALS: Ht 160 cm; Wt 63.2 kg
[2025-01-24 05:27] VITALS: TEMP 97.5
[2025-01-24 06:41] LABS: PLATELET COUNT (AUTO) 121 K/uL (150-450); RED BLOOD CELL COUNT(AUTO) 3.38 MIL/uL (4.00-5.20); RED CELL DISTRIBUTION WIDTH 15.6 % (11.5-14.5); WHITE BLOOD COUNT (AUTO) 3.8 K/uL (4.5-11.0)
[2025-01-24 06:53] LABS: CALCIUM, TOTAL 8.8 mg/dL (8.8-10.5); CREATININE 0.67 mg/dL (0.60-1.30); GLOMERULAR FILTR. RATE CALC > 60 mL/min (>60); GLUCOSE,RANDOM 196 mg/dL (70-110); SODIUM SERUM 139 mmol/L (136-145); UREA NITROGEN, BLOOD 14 mg/dL (7-18)
[2025-01-24 06:59] LABS: ASPARTATE AMINOTRANSFERASE 17.0 U/L (15-37); CREATINE KINASE, TOTAL ONLY 134.0 U/L (26-192); TOTAL PROTEIN, SERUM 6.4 g/dL (6.4-8.2)
[2025-01-24 07:00] VITALS: BP 122/71; PULSE 74; RESP 18; O2SAT 100
[2025-01-24 07:00] LABS: TROPONIN I-HIGH SENSITIVITY 7 ng/L (<51)
[2025-01-24] MEDS ORDERED: BENZ2TAB84 PO (10:14)
[2025-01-25] MEDS ORDERED: GLIP5TAB16 PO (13:22)
[2025-01-25] MEDS ORDERED: ARIP15TA27 PO (13:22)
[2025-01-25] MEDS ORDERED: LITH300C3 PO (13:22)
[2025-01-25] MEDS ORDERED: LORA10TA7 PO (13:22)
[2025-01-25] MEDS ORDERED: OXCA300T70 PO (13:22)
[2025-01-25] MEDS ORDERED: FLUO-418 PO (13:22)
[2025-01-25] MEDS ORDERED: BUSP10TA23 PO (13:22)
[2025-01-25] MEDS ORDERED: QUET200T PO (13:22)
[2025-01-25] MEDS ORDERED: MELA3TAB89 PO (13:22)
[2025-01-25] MEDS ORDERED: CHLO100T42 PO (13:22)
[2025-01-25] MEDS ORDERED: GEMF-77 PO (13:22)
== END 2025-01-24 09:08 ==
LOC: EMS 05:12
DX: R53.83 Other fatigue (principal); F31.9 Bipolar disorder, unspecified; Z88.1 Allergy status to other antibiotic agents; Z88.2 Allergy status to sulfonamides
CPT/HCPCS: 80048; 80076; 82550; 83880; 84484; 84703; 85025; 36415; 71045; 70450; 72125; 99285; 93005; G0480

== ENCOUNTER 2025-01-25 12:30 | Inpatient (IN) | payer MEDICAID, OTHER ==
[~2025-01-25] VITALS: Ht 160 cm; Wt 62.5 kg
[~2025-01-25 12:30] MED LIST changes: -ALLO-97 PO; -ATOR10TA PO; +BENZ2TAB84 PO; -FLUO-418 PO; -LEVO50 PO; -METF-1211 PO
[2025-01-25 12:34] VITALS: O2SAT 100
[2025-01-25 13:12] LABS: COVID AG,FIA SOURCE NASAL SWAB
[2025-01-25] MEDS ORDERED: ALLO-97 PO (13:22)
[2025-01-25] MEDS ORDERED: ARIP15TA27 PO (13:22)
[2025-01-25] MEDS ORDERED: MELA3TAB89 PO (13:22)
[2025-01-25] MEDS ORDERED: CHLO100T42 PO (13:22)
[2025-01-25] MEDS ORDERED: OXCA300T70 PO (13:22)
[2025-01-25] MEDS ORDERED: GEMF-77 PO (13:22)
[2025-01-25] MEDS ORDERED: BUSP10TA23 PO (13:22)
[2025-01-25] MEDS ORDERED: QUET200T PO (13:22)
[2025-01-25] MEDS ORDERED: METF-1211 PO (13:22)
[2025-01-25] MEDS ORDERED: ATOR10TA PO (13:22)
[2025-01-25] MEDS ORDERED: GLIP5TAB16 PO (13:22)
[2025-01-25] MEDS ORDERED: LORA10TA7 PO (13:22)
[2025-01-25] MEDS ORDERED: LEVO50 PO (13:22)
[2025-01-25] MEDS ORDERED: FLUO-418 PO (13:22)
[2025-01-25] MEDS ORDERED: LITH300C3 PO (13:22)
[2025-01-25 13:35] LABS: PLATELET COUNT (AUTO) 117 K/uL (150-450); RED BLOOD CELL COUNT(AUTO) 3.41 MIL/uL (4.00-5.20); RED CELL DISTRIBUTION WIDTH 15.3 % (11.5-14.5); WHITE BLOOD COUNT (AUTO) 3.9 K/uL (4.5-11.0)
[2025-01-25 13:49] LABS: CALCIUM, TOTAL 8.8 mg/dL (8.8-10.5); CREATININE 0.72 mg/dL (0.60-1.30); GLOMERULAR FILTR. RATE CALC > 60 mL/min (>60); GLUCOSE,RANDOM 113 mg/dL (70-110); SODIUM SERUM 143 mmol/L (136-145); UREA NITROGEN, BLOOD 14 mg/dL (7-18)
[2025-01-25 14:21] LABS: SARS-COV2 (COVID) ANTIGEN,FIA Negative (Negative)
[2025-01-25] MEDS ORDERED: ZOLPIDEM TARTRATE 10 MG TABLET PO PRN (15:00)
[2025-01-25] MEDS: DIVALPROEX SODIUM 500 MG DR TABLET PO SCH (19:00)
[2025-01-25 19:52] VITALS: BP 111/70; PULSE 68; RESP 16; TEMP 98.4; O2SAT 97
[2025-01-25] MEDS: BENZTROPINE MESYLATE 2 MG TABLET PO SCH (21:00)
[2025-01-25 21:21] LABS: GLUCOMETER DEV NAME(LOC) BV3S.2; GLUCOSE,POINT OF CARE 229 MG/DL (70-110)
[2025-01-25] MEDS ORDERED: INSULIN LISPRO 100 UNITS/ML SQ PRN (21:45)
[2025-01-25] MEDS ORDERED: DEXTROSE 50%-WATER 25 GM/50 ML SYRINGE IVP PRN (21:45)
[2025-01-25] MEDS ORDERED: GLUCAGON,HUMAN RECOMBINANT 1 MG VIAL IM PRN (22:00)
[2025-01-25 23:43] VITALS: RESP 16
[2025-01-26] VITALS: RESP 16
[2025-01-26] MEDS ORDERED: GLUCAGON,HUMAN RECOMBINANT 1 MG VIAL IM PRN
[2025-01-26] MEDS: INSULIN LISPRO 100 UNITS/ML SQ PRN (06:38)
[2025-01-26 06:40] LABS: GLUCOMETER DEV NAME(LOC) BV3S.2; GLUCOSE,POINT OF CARE 192 MG/DL (70-110)
[2025-01-26 08:07] VITALS: BP 127/88; PULSE 85; RESP 16; TEMP 97.6; O2SAT 99
[2025-01-26] MEDS ORDERED: IBUPROFEN 600 MG TABLET PO PRN (08:15)
[2025-01-26] MEDS ORDERED: ONDANSETRON 4 MG TABLET PO PRN (08:15)
[2025-01-26] MEDS ORDERED: MAGNESIUM HYDROXIDE SUSPENSION 30 ML UDCUP PO PRN (08:15)
[2025-01-26] MEDS ORDERED: MAG HYDROX/ALUMINUM HYD/SIMETH ES 30 ML SUSPENSION UDCUP PO PRN (08:15)
[2025-01-26] MEDS ORDERED: BACITRACIN 28 GM OINTMENT TP PRN (08:15)
[2025-01-26] MEDS ORDERED: ACETAMINOPHEN 325 MG TABLET PO PRN (08:15)
[2025-01-26] MEDS ORDERED: DOCUSATE SODIUM 100 MG CAPSULE PO PRN (08:15)
[2025-01-26] MEDS ORDERED: BENZOCAINE/MENTHOL [CEPACOL] LOZENGE PO PRN (08:15)
[2025-01-26] MEDS ORDERED: PETROLATUM,WHITE 28 GM JELLY TP PRN (08:15)
[2025-01-26] MEDS ORDERED: ALBUTEROL SULFATE HFA 90 MCG/PUFF 8 GM INHALER IH PRN (08:15)
[2025-01-26] MEDS ORDERED: OMEPRAZOLE 20 MG CAPSULE PO PRN (08:15)
[2025-01-26] MEDS: ATORVASTATIN CALCIUM 10 MG TABLET PO SCH (09:21)
[2025-01-26] MEDS: LORATADINE 10 MG TABLET PO SCH (09:21)
[2025-01-26 11:21] LABS: GLUCOMETER DEV NAME(LOC) BV3S.2; GLUCOSE,POINT OF CARE 252 MG/DL (70-110)
[2025-01-26 16:56] LABS: GLUCOMETER DEV NAME(LOC) BV3S.2; GLUCOSE,POINT OF CARE 242 MG/DL (70-110)
[2025-01-26 20:20] VITALS: BP 123/70; PULSE 66; RESP 17; TEMP 97.2; O2SAT 100
[2025-01-26 21:35] LABS: GLUCOMETER DEV NAME(LOC) BV3S.2; GLUCOSE,POINT OF CARE 168 MG/DL (70-110)
[2025-01-27] MEDS: LEVOTHYROXINE SODIUM 50 MCG TABLET PO SCH (06:30)
[2025-01-27 06:41] LABS: GLUCOMETER DEV NAME(LOC) BV3S.2; GLUCOSE,POINT OF CARE 162 MG/DL (70-110)
[2025-01-27 08:20] VITALS: BP 113/72; PULSE 75; RESP 16; TEMP 97.3; O2SAT 100
[2025-01-27 11:21] LABS: GLUCOMETER DEV NAME(LOC) BV3S.2; GLUCOSE,POINT OF CARE 195 MG/DL (70-110)
[2025-01-27] MEDS: LOPERAMIDE HCL 2 MG CAPSULE PO PRN (13:31)
[2025-01-27 16:06] LABS: GLUCOMETER DEV NAME(LOC) BV3S.2; GLUCOSE,POINT OF CARE 326 MG/DL (70-110)
[2025-01-27 20:00] VITALS: BP 124/75; PULSE 64; RESP 17; TEMP 97.8; O2SAT 100
[2025-01-27 21:21] LABS: GLUCOMETER DEV NAME(LOC) BV3S.2; GLUCOSE,POINT OF CARE 181 MG/DL (70-110)
[2025-01-28 06:11] LABS: GLUCOMETER DEV NAME(LOC) BV3S.2; GLUCOSE,POINT OF CARE 163 MG/DL (70-110)
[2025-01-28 08:35] VITALS: BP 121/82; PULSE 62; RESP 16; TEMP 98; O2SAT 100
[2025-01-28 17:21] LABS: GLUCOMETER DEV NAME(LOC) BV3S.2; GLUCOSE,POINT OF CARE 108 MG/DL (70-110)
[2025-01-28 17:21] LABS: GLUCOMETER DEV NAME(LOC) BV3S.2; GLUCOSE,POINT OF CARE 171 MG/DL (70-110)
[2025-01-28 20:12] VITALS: BP 120/74; PULSE 63; RESP 18; TEMP 97
[2025-01-29 06:20] LABS: GLUCOMETER DEV NAME(LOC) BV3S.2; GLUCOSE,POINT OF CARE 167 MG/DL (70-110)
[2025-01-29 10:56] VITALS: BP 108/76; PULSE 55; RESP 17; TEMP 97.5; O2SAT 100
[2025-01-29 20:11] LABS: GLUCOMETER DEV NAME(LOC) BV3S.2; GLUCOSE,POINT OF CARE 97 MG/DL (70-110)
[2025-01-29 20:11] LABS: GLUCOMETER DEV NAME(LOC) BV3S.2; GLUCOSE,POINT OF CARE 135 MG/DL (70-110)
[2025-01-29 20:21] VITALS: BP 123/77; PULSE 68; RESP 17; TEMP 97.2; O2SAT 100
[2025-01-29 21:01] LABS: GLUCOMETER DEV NAME(LOC) BV3S.2; GLUCOSE,POINT OF CARE 197 MG/DL (70-110)
[2025-01-30 06:40] LABS: GLUCOMETER DEV NAME(LOC) BV3S.2; GLUCOSE,POINT OF CARE 164 MG/DL (70-110)
[2025-01-30 08:35] VITALS: BP 117/72; PULSE 66; RESP 16; TEMP 97.8; O2SAT 99
[2025-01-30] MEDS ORDERED: FLUP25VI5 IM (10:08)
[2025-01-30] MEDS ORDERED: DIVA-112 PO (10:09)
[2025-01-30 11:21] LABS: GLUCOMETER DEV NAME(LOC) BV3S.2; GLUCOSE,POINT OF CARE 107 MG/DL (70-110)
== END 2025-01-30 11:15 | disposition home or self-care (01) | DRG 761 ==
LOC: EMS 12:36 → B3A 18:18
PROVIDERS: ADMIT Psychiatry & Neurology Psychiatry; ATTEND Psychiatry & Neurology Psychiatry
DX: F25.9 Schizoaffective disorder, unspecified (principal); E03.9 Hypothyroidism, unspecified; F31.9 Bipolar disorder, unspecified; E11.9 Type 2 diabetes mellitus without complications; E78.5 Hyperlipidemia, unspecified; F41.9 Anxiety disorder, unspecified; Z20.822 Contact with and (suspected) exposure to COVID-19; J30.9 Allergic rhinitis, unspecified; K59.00 Constipation, unspecified; G47.00 Insomnia, unspecified; E73.9 Lactose intolerance, unspecified; F70 Mild intellectual disabilities; F90.9 Attention-deficit hyperactivity disorder, unspecified type; Z87.59 Personal history of other complications of pregnancy, childbirth and the puerperium; Z79.899 Other long term (current) drug therapy
CPT/HCPCS: 80048; 82962; 84702; 84703; 85025; 87081; G0480

== ENCOUNTER 2025-04-07 19:09 | Emergency (ER) | payer MEDICAID, OTHER ==
[~2025-04-07] VITALS: Ht 160 cm; Wt 65.9 kg
[~2025-04-07 19:09] MED LIST changes: +ALLO-97 PO; +ATOR10TA PO; +FERR325T27 PO; +FLUP10TA28 PO; -FLUP25VI5 IM; +GEMF-77 PO; +GLIP5TAB16 PO; +LEVO125T95 PO; +LORA10TA7 PO; +METF-1211 PO
[2025-04-07 19:23] VITALS: TEMP 98.2
[2025-04-08] MEDS: HYDROCODONE/ACETAMINOPHEN 5-325 MG TABLET PO ONE (02:27)
[2025-04-08 02:38] LABS: PLATELET COUNT (AUTO) 144 K/uL (150-450); RED BLOOD CELL COUNT(AUTO) 3.10 MIL/uL (4.00-5.20); RED CELL DISTRIBUTION WIDTH 17.8 % (11.5-14.5); WHITE BLOOD COUNT (AUTO) 2.5 K/uL (4.5-11.0)
[2025-04-08] MEDS: ACETAMINOPHEN 500 MG TABLET PO ONE (02:46)
[2025-04-08 03:15] LABS: SODIUM SERUM 144 mmol/L (136-145)
[2025-04-08 03:16] LABS: CALCIUM, TOTAL 9.0 mg/dL (8.8-10.5); CREATININE 0.79 mg/dL (0.60-1.30); GLOMERULAR FILTR. RATE CALC > 60 mL/min (>60); GLUCOSE,RANDOM 141 mg/dL (70-110); UREA NITROGEN, BLOOD 17 mg/dL (7-18)
[2025-04-08 03:25] LABS: LACTIC ACID 1.7 mmol/L (0.4-2.0)
[2025-04-08] MEDS: APIXABAN 5 MG TABLET PO ONE (06:37)
[2025-04-08 10:02] VITALS: BP 126/70; PULSE 75; RESP 16; O2SAT 99
== END 2025-04-08 11:45 | disposition home or self-care (01) ==
LOC: EMS 19:09
DX: M79.605 Pain in left leg (principal); M79.89 Other specified soft tissue disorders; F31.9 Bipolar disorder, unspecified; Z86.718 Personal history of other venous thrombosis and embolism; Z88.1 Allergy status to other antibiotic agents; Z88.2 Allergy status to sulfonamides; Z79.01 Long term (current) use of anticoagulants; Z79.899 Other long term (current) drug therapy
CPT/HCPCS: 80048; 82962; 83605; 85025; 93971; 99285